=== PATIENT | male | born 1940 | race Caucasian/White ===

== ENCOUNTER 2021-12-07 10:22 | Inpatient (IN) ==
[2021-12-07] MEDS ORDERED: Ondansetron ODT 4 MG TAB.RAPDIS SL PRN (15:04)
[2021-12-07] MEDS ORDERED: Acetaminophen 325 MG TABLET PO PRN (15:04)
[2021-12-07] MEDS: Furosemide 20 MG TABLET PO SCH (18:05)
[2021-12-08 06:29] LABS: Basophils % 0.9 %; Eosinophils # 0.2 K/mcL (0.0-0.6); Eosinophils % 4.7 %; Hematocrit 40.9 % (37.5-50.1); Hemoglobin 13.4 g/dL (12.9-16.9); Immature Granulocytes % 0.4 % (0-4); Lymphocytes # 1.4 K/mcL (0.6-4.6); Lymphocytes % 29.3 %; Mean Corpuscular HGB Conc 32.8 g/dL (31.6-35.5); Mean Corpuscular Hemoglobin 32.9 pg (28.0-33.3); Mean Corpuscular Volume 100.5 fL (83.0-100.0); Mean Platelet Volume 9.9 fL (9.4-12.4); Monocytes # 0.7 K/mcL (0.0-1.3); Monocytes % 14.7 %; Neutrophils # 2.3 K/mcL (1.6-8.9); Platelet Count 227 K/mcL (140-400); Red Blood Count 4.07 M/mcL (4.19-5.50); Red Cell Distribution Width 13.1 % (11.5-14.5); White Blood Count 4.7 K/mcL (4.3-11.1)
[2021-12-08 06:51] LABS: BUN/Creatinine Ratio 16 (6-26); Blood Urea Nitrogen 17 mg/dL (8-23); Calcium 9.3 mg/dL (8.6-10.3); Carbon Dioxide 27 mEq/L (23-29); Chloride 100 mEq/L (98-107); Glucose 98 mg/dL (70-105); Osmolality,Calculated 284 (280-300); Potassium 3.4 mEq/L (3.5-5.1); Sodium 136 mEq/L (136-145); eGFR For African Americans > 60 (> 60); eGFR For Non-African Americans > 60 (> 60)
[2021-12-08] MEDS: Thiamine (B-1) 100 MG TABLET PO SCH (10:39)
[2021-12-08] MEDS: Vitamin B Complex/Vit C/Vit E 1 EACH TABLET PO SCH (10:40)
[2021-12-08] MEDS: Verapamil ER (24 HR) 120 MG TABLET.ER PO SCH (10:40)
[2021-12-08] MEDS: Furosemide 20 MG TABLET PO SCH ×2 (10:40→16:02)
[2021-12-08] MEDS: Folic Acid 1 MG TABLET PO SCH (10:42)
[2021-12-08] MEDS: Aspirin Enteric Coated 81 MG Tablet PO SCH (10:42)
[2021-12-08] MEDS: *HR* Rivaroxaban 10 MG TABLET PO SCH (16:03)
[2021-12-09] MEDS: Vitamin B Complex/Vit C/Vit E 1 EACH TABLET PO SCH (08:12)
[2021-12-09] MEDS: Aspirin Enteric Coated 81 MG Tablet PO SCH (08:13)
[2021-12-09] MEDS: Thiamine (B-1) 100 MG TABLET PO SCH (08:13)
[2021-12-09] MEDS: Folic Acid 1 MG TABLET PO SCH (08:13)
[2021-12-09] MEDS: Furosemide 20 MG TABLET PO SCH ×2 (08:13→17:39)
[2021-12-09] MEDS: Verapamil ER (24 HR) 120 MG TABLET.ER PO SCH (08:13)
[2021-12-09] MEDS: *HR* Rivaroxaban 10 MG TABLET PO SCH (17:39)
[2021-12-10] MEDS: Verapamil ER (24 HR) 120 MG TABLET.ER PO SCH (08:58)
[2021-12-10] MEDS: Folic Acid 1 MG TABLET PO SCH (08:58)
[2021-12-10] MEDS: Vitamin B Complex/Vit C/Vit E 1 EACH TABLET PO SCH (08:59)
[2021-12-10] MEDS: Thiamine (B-1) 100 MG TABLET PO SCH (08:59)
[2021-12-10] MEDS: Aspirin Enteric Coated 81 MG Tablet PO SCH (08:59)
[2021-12-10] MEDS: Furosemide 20 MG TABLET PO SCH ×2 (08:59→16:37)
[2021-12-10] MEDS: *HR* Rivaroxaban 10 MG TABLET PO SCH (16:37)
[2021-12-11] MEDS: Aspirin Enteric Coated 81 MG Tablet PO SCH (08:22)
[2021-12-11] MEDS: Furosemide 20 MG TABLET PO SCH ×2 (08:22→16:28)
[2021-12-11] MEDS: Vitamin B Complex/Vit C/Vit E 1 EACH TABLET PO SCH (08:23)
[2021-12-11] MEDS: Thiamine (B-1) 100 MG TABLET PO SCH (08:23)
[2021-12-11] MEDS: Folic Acid 1 MG TABLET PO SCH (08:23)
[2021-12-11] MEDS: Verapamil ER (24 HR) 120 MG TABLET.ER PO SCH (08:23)
[2021-12-11] MEDS: *HR* Rivaroxaban 10 MG TABLET PO SCH (16:28)
[2021-12-12] MEDS: Aspirin Enteric Coated 81 MG Tablet PO SCH (08:11)
[2021-12-12] MEDS: Furosemide 20 MG TABLET PO SCH ×2 (08:11→15:31)
[2021-12-12] MEDS: Vitamin B Complex/Vit C/Vit E 1 EACH TABLET PO SCH (08:11)
[2021-12-12] MEDS: Thiamine (B-1) 100 MG TABLET PO SCH (08:12)
[2021-12-12] MEDS: Folic Acid 1 MG TABLET PO SCH (08:12)
[2021-12-12] MEDS: Verapamil ER (24 HR) 120 MG TABLET.ER PO SCH (08:12)
[2021-12-12 09:53] LABS: BUN/Creatinine Ratio 23 (6-26); Blood Urea Nitrogen 23 mg/dL (8-23); Calcium 9.6 mg/dL (8.6-10.3); Carbon Dioxide 31 mEq/L (23-29); Chloride 98 mEq/L (98-107); Glucose 131 mg/dL (70-105); Osmolality,Calculated 287 (280-300); Potassium 3.2 mEq/L (3.5-5.1); Sodium 136 mEq/L (136-145); eGFR For African Americans > 60 (> 60); eGFR For Non-African Americans > 60 (> 60)
[2021-12-12] MEDS: *HR* Rivaroxaban 10 MG TABLET PO SCH (15:31)
[2021-12-13] MEDS: Furosemide 20 MG TABLET PO SCH ×2 (07:43→16:57)
[2021-12-13] MEDS: Verapamil ER (24 HR) 120 MG TABLET.ER PO SCH (07:43)
[2021-12-13] MEDS: Aspirin Enteric Coated 81 MG Tablet PO SCH (07:43)
[2021-12-13] MEDS: Folic Acid 1 MG TABLET PO SCH (07:44)
[2021-12-13] MEDS: Vitamin B Complex/Vit C/Vit E 1 EACH TABLET PO SCH (07:44)
[2021-12-13] MEDS: Thiamine (B-1) 100 MG TABLET PO SCH (07:44)
[2021-12-13] MEDS: Magnesium Oxide 400 MG TABLET PO SCH (09:38)
[2021-12-13] MEDS: *HR* Rivaroxaban 10 MG TABLET PO SCH (16:57)
[2021-12-14] MEDS: Aspirin Enteric Coated 81 MG Tablet PO SCH (10:13)
[2021-12-14] MEDS: Thiamine (B-1) 100 MG TABLET PO SCH (10:13)
[2021-12-14] MEDS: Furosemide 20 MG TABLET PO SCH ×2 (10:13→17:24)
[2021-12-14] MEDS: Verapamil ER (24 HR) 120 MG TABLET.ER PO SCH (10:13)
[2021-12-14] MEDS: Folic Acid 1 MG TABLET PO SCH (10:13)
[2021-12-14] MEDS: Vitamin B Complex/Vit C/Vit E 1 EACH TABLET PO SCH (10:14)
[2021-12-14] MEDS: Magnesium Oxide 400 MG TABLET PO SCH (10:14)
[2021-12-14] MEDS: *HR* Rivaroxaban 10 MG TABLET PO SCH (17:24)
[2021-12-15] MEDS: Verapamil ER (24 HR) 120 MG TABLET.ER PO SCH (07:38)
[2021-12-15] MEDS: Thiamine (B-1) 100 MG TABLET PO SCH (07:38)
[2021-12-15] MEDS: Magnesium Oxide 400 MG TABLET PO SCH (07:38)
[2021-12-15] MEDS: Folic Acid 1 MG TABLET PO SCH (07:38)
[2021-12-15 07:39] LABS: Hematocrit 37.8 % (37.5-50.1); Hemoglobin 12.3 g/dL (12.9-16.9); Mean Corpuscular HGB Conc 32.5 g/dL (31.6-35.5); Mean Corpuscular Hemoglobin 32.8 pg (28.0-33.3); Mean Corpuscular Volume 100.8 fL (83.0-100.0); Mean Platelet Volume 10.8 fL (9.4-12.4); Platelet Count 244 K/mcL (140-400); Red Blood Count 3.75 M/mcL (4.19-5.50); Red Cell Distribution Width 13.2 % (11.5-14.5); White Blood Count 5.8 K/mcL (4.3-11.1)
[2021-12-15] MEDS: Furosemide 20 MG TABLET PO SCH ×2 (07:39→16:45)
[2021-12-15] MEDS: Vitamin B Complex/Vit C/Vit E 1 EACH TABLET PO SCH (07:39)
[2021-12-15] MEDS: Aspirin Enteric Coated 81 MG Tablet PO SCH (07:39)
[2021-12-15 07:52] LABS: BUN/Creatinine Ratio 25 (6-26); Blood Urea Nitrogen 21 mg/dL (8-23); Calcium 9.7 mg/dL (8.6-10.3); Carbon Dioxide 27 mEq/L (23-29); Chloride 102 mEq/L (98-107); Glucose 103 mg/dL (70-105); Magnesium 1.6 mg/dL (1.6-2.6); Osmolality,Calculated 287 (280-300); Potassium 3.8 mEq/L (3.5-5.1); Sodium 137 mEq/L (136-145); eGFR For African Americans > 60 (> 60); eGFR For Non-African Americans > 60 (> 60)
[2021-12-15] MEDS: *HR* Rivaroxaban 10 MG TABLET PO SCH (16:45)
[2021-12-16 07:21] VITALS: BP 139/79; PULSE 73; RESP 18; TEMP 98
[2021-12-16] MEDS: Folic Acid 1 MG TABLET PO SCH (09:28)
[2021-12-16] MEDS: Vitamin B Complex/Vit C/Vit E 1 EACH TABLET PO SCH (09:28)
[2021-12-16] MEDS: Aspirin Enteric Coated 81 MG Tablet PO SCH (09:28)
[2021-12-16] MEDS: Thiamine (B-1) 100 MG TABLET PO SCH (09:29)
[2021-12-16] MEDS: Furosemide 20 MG TABLET PO SCH (09:29)
[2021-12-16] MEDS: Verapamil ER (24 HR) 120 MG TABLET.ER PO SCH (09:29)
[2021-12-16] MEDS: Magnesium Oxide 400 MG TABLET PO SCH (09:30)
[2021-12-16 09:33] VITALS: O2SAT 94
== END 2021-12-16 10:00 | disposition home health service (06) | DRG 641 ==
LOC: INPPIK 14:53
PROVIDERS: ADMIT Family Medicine; ATTEND Family Medicine